=== PATIENT | female | born 1945 | race Caucasian/White ===

== ENCOUNTER 2016-11-30 09:47 | Outpatient (CLI) | payer OTHER ==
[~2016-11-30 09:47] MED LIST: ABILIFY5 MG PO; ATENOLOL25 MG PO; ESTRACE2 MG PO; FLUOXETINE HCL20 MG PO; LEVOTHYROXINE88 MCG PO; OMEPRAZOLE20 MG PO; PLAVIX75 MG PO; TRAZODONE HCL50 MG PO
--- NOTE | 2016-11-30 11:16 | DIAGNOSTIC IMAGING REPORT ---
PROCEDURE: MG BILATERAL SCREENING W/CAD INDICATION: SCREENING TECHNIQUE: Bilateral CC and MLO digital views. COMPARISON: Compared to 11/05/2015, 10/10/2012, and 07/01/2006. FINDINGS: Computer-aided detection applied. Mildly dense and nodular. No change. IMPRESSION: 1. Negative mammogram. RESULT CODE: 1- Negative. A. A negative report should not delay biopsy if a dominant or clinically suspicious mass is present. 10-15% of cancers are not identified by x-ray. B. A negative report may reinforce clinical impression. C. Adenosis and dense breasts may obscure an underlying neoplasm. D. False positive reports average 6-10%. E.. A yearly screening mammogram is recommended. A reminder letter will be scheduled.
== END 2016-11-30 23:00 ==
LOC: MAM SRH 09:47
DX: Z12.31 Encounter for screening mammogram for malignant neoplasm of breast (principal)